=== PATIENT | female | born 1965 | race Caucasian/White ===

== ENCOUNTER 2023-05-10 14:00 | Outpatient (CLI) | payer OTHER | END 2023-05-10 14:01 | disposition home or self-care (01) | LOC: NAV RAD 14:00 | PROVIDERS: ATTEND Family Medicine | DX: Z02.71 Encounter for disability determination (principal); M25.521 Pain in right elbow; M25.572 Pain in left ankle and joints of left foot; Z87.81 Personal history of (healed) traumatic fracture ==